=== PATIENT | male | born 1960 | race Native Hawaiian/Other Pacific Islander ===

== ENCOUNTER 2018-04-21 15:51 | Emergency (ER) | payer SELFPAY ==
[2018-04-21 17:26] VITALS: BP 138/88
--- NOTE | 2018-04-21 18:18 | Emergency Department Report ---
Blank Doc - Documentation Documentation: 57 y.o. male presents to ED with right 1st digit pain s/p accidental hitting it with hammer 3-4 days ago. cc of pain to right thumb EXAM: Tender to palp of right distal phalanx, swelling, partial nail avulsion. PLAN: xr fast track eval.
--- NOTE | 2018-04-21 19:28 | XRay Report ---
FINAL REPORT EXAM: XRAY FINGER RIGHT 1ST DIGIT HISTORY: right first digit phalanx TECHNIQUE: Three views the right thumb PRIORS: None. FINDINGS: No fracture is identified. The joint spaces are within normal limits. No focal bony lesion identified . No radiopaque foreign body seen. IMPRESSION: Negative no acute abnormality.
[2018-04-21] MEDS ORDERED: NORCO 5/325 PO ONE (21:31)
[2018-04-21] MEDS ORDERED: KEFLEX PO ONE (21:31)
--- NOTE | 2018-04-21 21:38 | Emergency Department Report ---
Upper Extremity - HPI Chief Complaint: Extremity Injury, Upper Stated Complaint: THUMB NAIL CAME OFF Time Seen by Provider: 04/21/18 18:13 Upper Extremity: Right Thumb Occurred When: 3 Days Mechanism: Hit with Object Severity: moderate Symptoms: Yes Pain with Movement, Yes Swelling, Yes Bruising/Ecchymosis, No Deformity, No Limited Range of Movement, No Numbness, No Weakness, No Laceration or Abrasion Other History: Patient is a 57-year-old male presenting status post crush injury to right thumb , 3 days ago states nail came off with pain swelling drainage pain is 7/10 was moderate swelling and purulent drainage no numbness no tingling range of motion is intact ED Review of Systems ROS: Stated complaint: THUMB NAIL CAME OFF Other details as noted in HPI Constitutional: denies: chills, fever Eyes: denies: eye pain, eye discharge, vision change ENT: denies: ear pain, throat pain Respiratory: denies: cough, shortness of breath, wheezing Cardiovascular: denies: chest pain, palpitations Endocrine: no symptoms reported Gastrointestinal: denies: abdominal pain, nausea, diarrhea Genitourinary: denies: urgency, dysuria Musculoskeletal: joint swelling (right thumb ), other (subugual hematoma) Skin: denies: rash, lesions Neurological: denies: headache, weakness, paresthesias Psychiatric: denies: anxiety, depression Hematological/Lymphatic: denies: easy bleeding, easy bruising ED Past Medical Hx - Past Medical History Previous Medical History?: No - Surgical History Past Surgical History?: No - Social History Smoking Status: Unknown if ever smoked - Medications Home Medications: Home Medications Medication Instructions Recorded Confirmed Last Taken Type Cephalexin [Keflex] 500 mg PO QID 10 Days #40 capsule 04/21/18 Unknown Rx Tramadol HCl [Ultram] 50 mg PO Q6H #12 tablet 04/21/18 Unknown Rx Upper Extremity Exam - Exam General: Vital signs noted. No distress. Alert and acting appropriately. Head and Torso: No HEENT Abnormality, No Neck Tenderness, No Chest/Lungs Abnormality, No Abdominal Tenderness, No Back Tenderness Shoulder Exam: Yes Normal Range of Motion in Shoulder, No Shoulder Tenderness, No Clavicle Tenderness, No Shoulder Deformity, No AC Joint Tenderness Arm Exam: No Arm/Humerus Tenderness, No Arm Deformity Elbow: No Elbow Tenderness, No Normal Range of Motion in Elbow, No Elbow Deformity Forearm: No Forearm Tenderness, No Forearm Deformity, No Pain with Pronation, No Pain with Supination Wrist: Yes Normal ROM in Wrist, No Wrist Tenderness, No Wrist Deformity, No Snuffbox Tenderness, No Pain with Axial Thumb Compression Hand: Yes Digit Tenderness, Yes Normal ROM in Digit(s), Yes Digit(s) Deformity (right thumb nail ), No Hand Tenderness, No Hand Deformity, No Tendon Dysfunction CMS Exam: Yes Broken Skin, Yes Normal Distal Pulses, Yes Normal Capillary Refill, Yes Normal Distal Sensation ED Course Vital Signs 04/21/18 04/21/18 17:24 20:06 Temperature 98.6 F 98.6 F Pulse Rate 78 78 Respiratory 16 Rate Blood Pressure 138/88 Blood Pressure 138/88 [Left] O2 Sat by Pulse 100 97 Oximetry - I & D Right Finger Type of Procedure: Simple Site: right thumb nail subugual hematoma Blade Size: 11 I & D Procedure: betadine prep, sterile dressing applied Progress: His right thumbnail subungual hematoma negative fracture on x-ray wound clean with Betadine solution and anesthesia with 1% lidocaine plain via digital block no remembrance 11 blade . Nailbed probed and swept with Q-tip irrigated with 20 mL sterile saline Vaseline gauze dressing applied no remaining nail used for anchor sterile dressings applied patient given wound care instructions including symptoms of infection and when to return to ED range of motion is intact there is no tendon muscle or joint damage. distal pulse intact ED Medical Decision Making - Radiology Data Radiology results: report reviewed, image reviewed FINAL REPORT EXAM: XRAY FINGER RIGHT 1ST DIGIT HISTORY: right first digit phalanx TECHNIQUE: Three views the right thumb PRIORS: None. FINDINGS: No fracture is identified. The joint spaces are within normal limits. No focal bony lesion identified. No radiopaque foreign body seen. IMPRESSION: Negative no acute abnormality. Transcribed By: FELIX Dictated By: VALE NOVOA MD Electronically Authenticated By: VALE NOVOA MD Signed Date/Time: 04/21/181927 DD/ 26 TD/TT: 04/21/181926 - Medical Decision Making subugual hematoma, neg xray , nailed removed intact , sterile dressing applied all bleeding controlled, no nerve tendon or muscle damage on osteomyelitis, pt tolerated procedure with minimal distress, pt will follow up with [facility] in 2 days for wound check will dc to home with rx for keflex, ultram pt will return to ed if symptoms worsen. Critical care attestation.: If time is entered above; I have spent that time in minutes in the direct care of this critically ill patient, excluding procedure time. ED Disposition Clinical Impression: Subungual hematoma Disposition: DC-01 TO HOME OR SELFCARE Is pt being admited?: No Does the pt Need Aspirin: No Condition: Stable Instructions: Subungual Hematoma (ED) Prescriptions: Cephalexin [Keflex] 500 mg PO QID 10 Days #40 capsule Tramadol HCl [Ultram] 50 mg PO Q6H #12 tablet Referrals: [facility] [Outside] - 3-5 Days Forms: Work/School Release Form(ED) Time of Disposition: 21:42
== END 2018-04-21 21:50 | disposition home or self-care (01) ==
LOC: ED 15:51
DX: S60.111A Contusion of right thumb with damage to nail, initial encounter (principal); W23.0XXA Caught, crushed, jammed, or pinched between moving objects, initial encounter; Y93.89 Activity, other specified; Y92.89 Other specified places as the place of occurrence of the external cause; Y99.8 Other external cause status

== ENCOUNTER 2018-04-27 17:03 | Emergency (ER) | payer SELFPAY ==
[2018-04-27 17:30] VITALS: BP 132/80
[2018-04-27] MEDS ORDERED: TYLENOL #3 PO ONE (17:39)
[2018-04-27] MEDS ORDERED: TRIPLE ANTIBIOTIC TP ONE (17:39)
--- NOTE | 2018-04-27 17:39 | Emergency Department Report ---
Blank Doc - Documentation Documentation: 57 y o male returns to ED for wound check thumb nail off redress lightly f/u with pcp
--- NOTE | 2018-04-27 18:15 | Emergency Department Report ---
ED Recheck HPI - General Chief Complaint: Laceration/Recheck/Suture Stated Complaint: RT HAND PAIN Time Seen by Provider: 04/27/18 17:26 Source: patient Mode of arrival: Ambulatory Limitations: No Limitations - History of Present Illness Initial Comments: Patient is a 57 year old [place] male who comes to the ER today for recheck of his wound. He states that he hit it with a hammer several days ago and was seen here in the ER. He says he was told to follow-up here. However, review the chart states that he was to follow up as primary care. MD Complaint: wound re-check Symptoms Since Prior Visit: no new symptoms - Related Data Previous Rx's Medication Instructions Recorded Last Taken Type Cephalexin [Keflex] 500 mg PO QID 10 Days #40 capsule 04/21/18 Unknown Rx Tramadol HCl [Ultram] 50 mg PO Q6H #12 tablet 04/21/18 Unknown Rx Allergies Allergy/AdvReac Type Severity Reaction Status Date / Time No Known Allergies Allergy Verified 04/21/18 18:13 ED Review of Systems ROS: Stated complaint: RT HAND PAIN Other details as noted in HPI Comment: All other systems reviewed and negative Constitutional: denies: see HPI ENT: denies: as per HPI, ear pain Respiratory: denies: cough Cardiovascular: denies: palpitations Endocrine: denies: intolerance to cold Gastrointestinal: denies: abdominal pain Genitourinary: denies: urgency Musculoskeletal: as per HPI. denies: back pain Skin: denies: rash Neurological: denies: headache Psychiatric: denies: as per HPI, depression Hematological/Lymphatic: denies: easy bleeding ED Past Medical Hx - Past Medical History Previous Medical History?: No - Surgical History Past Surgical History?: No - Family History Family history: no significant - Social History Smoking Status: Never Smoker Substance Use Type: None - Medications Home Medications: Home Medications Medication Instructions Recorded Confirmed Last Taken Type Cephalexin [Keflex] 500 mg PO QID 10 Days #40 capsule 04/21/18 Unknown Rx Tramadol HCl [Ultram] 50 mg PO Q6H #12 tablet 04/21/18 Unknown Rx ED Physical Exam - General Limitations: No Limitations General appearance: alert - Head Head exam: Present: atraumatic - Eye Eye exam: Present: normal appearance, PERRL Pupils: Present: normal accommodation - ENT ENT exam: Present: mucous membranes moist - Neck Neck exam: Present: normal inspection - Respiratory Respiratory exam: Present: normal lung sounds bilaterally - Cardiovascular Cardiovascular Exam: Present: regular rate - GI/Abdominal GI/Abdominal exam: Present: soft - Rectal Rectal exam: Present: deferred - Extremities Exam Extremities exam: Present: other (THUMB HEALING WELL. NO DRAINGE. NO FEVER) - Neurological Exam Neurological exam: Present: alert, oriented X3 - Psychiatric Psychiatric exam: Present: normal affect, normal mood - Skin Skin exam: Present: warm, dry ED Course Vital Signs 04/27/18 17:27 Temperature 98.3 F Pulse Rate 102 H Respiratory 18 Rate Blood Pressure 132/80 [Left] O2 Sat by Pulse 97 Oximetry ED Recheck MDM - Core Measures Measure Exclusions: not indicated - Differential Diagnosis Wound Recheck - Medical Decision Making HEALING WELL NO SYMPTOMS OF INFECTION NO FEVER Critical care attestation.: If time is entered above; I have spent that time in minutes in the direct care of this critically ill patient, excluding procedure time. ED Disposition Clinical Impression: Visit for wound check Disposition: DC- TO HOME OR SELFCARE Is pt being admited?: No Does the pt Need Aspirin: No Condition: Stable Instructions: Laceration (ED) Additional Instructions: follow up with pcp referral below motrin or tylenol for pain continue your keflex medicine change dressing twice per day take dressing off wash with soap and water apply neosporin (OVER THE COUNTER) and wrap loosely in guaze Referrals: [facility] [Outside] - 3-5 Days Time of Disposition: 18:17
== END 2018-04-27 18:54 | disposition home or self-care (01) ==
LOC: ED 17:03
DX: Z48.00 Encounter for change or removal of nonsurgical wound dressing (principal); Z53.21 Procedure and treatment not carried out due to patient leaving prior to being seen by health care provider
CPT/HCPCS: A6250

== ENCOUNTER 2018-07-17 11:36 | Emergency (ER) | payer OTHER ==
--- NOTE | 2018-07-17 13:32 | Emergency Department Report ---
ED General Adult HPI - General Chief complaint: Extremity Injury, Upper Stated complaint: R HAND PAIN Time Seen by Provider: 07/17/18 13:10 Source: patient Mode of arrival: Ambulatory Limitations: Language Barrier - History of Present Illness Initial comments: This is a 57-year-old male who was pitting here previously after sustaining a laceration to his right thumb that happened in April. Patient has been here several times and was evaluated. For his right thumb injury. Patient denies being here to follow-up continuously due to infection of the right thumb. Patient states that he took all his medication as prescribed to him couple months ago.Patient reports to the ED complaining of pain to the same right thumb. Patient states is his normal medication he was given she denies any reinjury or trauma to the finger. He presents today stating that he started having some pain to the right finger. No other complaints - Related Data Previous Rx's Medication Instructions Recorded Last Taken Type Cephalexin [Keflex] 500 mg PO QID 10 Days #40 capsule 04/21/18 Unknown Rx Tramadol HCl [Ultram] 50 mg PO Q6H #12 tablet 04/21/18 Unknown Rx Acetaminophen/Codeine [Tylenol 1 tab PO Q6H PRN #14 tab 04/29/18 Unknown Rx /Codeine # 3 tab] Ciprofloxacin HCl [Ciprofloxacin 500 mg PO Q12H 10 Days #20 tab 04/29/18 Unknown Rx TAB] Clindamycin [Clindamycin CAP] 300 mg PO Q8H 10 Days #30 cap 07/17/18 Unknown Rx Ibuprofen [Motrin 800 MG tab] 800 mg PO Q8HR PRN #30 tablet 07/17/18 Unknown Rx Allergies Allergy/AdvReac Type Severity Reaction Status Date / Time No Known Allergies Allergy Verified 04/21/18 18:13 ED Review of Systems ROS: Stated complaint: R HAND PAIN Other details as noted in HPI Comment: All other systems reviewed and negative ED Past Medical Hx - Past Medical History Previous Medical History?: No Additional medical history: Injured right thumb on 05/01/2018 - Social History Smoking Status: Never Smoker Substance Use Type: None - Medications Home Medications: Home Medications Medication Instructions Recorded Confirmed Last Taken Type Cephalexin [Keflex] 500 mg PO QID 10 Days #40 capsule 04/21/18 Unknown Rx Tramadol HCl [Ultram] 50 mg PO Q6H #12 tablet 04/21/18 Unknown Rx Acetaminophen/Codeine [Tylenol 1 tab PO Q6H PRN #14 tab 04/29/18 Unknown Rx /Codeine # 3 tab] Ciprofloxacin HCl [Ciprofloxacin 500 mg PO Q12H 10 Days #20 tab 04/29/18 Unknown Rx TAB] Clindamycin [Clindamycin CAP] 300 mg PO Q8H 10 Days #30 cap 07/17/18 Unknown Rx Ibuprofen [Motrin 800 MG tab] 800 mg PO Q8HR PRN #30 tablet 07/17/18 Unknown Rx ED Physical Exam - General Limitations: Language Barrier General appearance: alert, in no apparent distress - Head Head exam: Present: atraumatic, normocephalic - Eye Eye exam: Present: normal appearance - ENT ENT exam: Present: mucous membranes moist - Neck Neck exam: Present: normal inspection - Respiratory Respiratory exam: Present: normal lung sounds bilaterally. Absent: respiratory distress - Cardiovascular Cardiovascular Exam: Present: regular rate, normal rhythm. Absent: systolic murmur, diastolic murmur, rubs, gallop - GI/Abdominal GI/Abdominal exam: Present: soft, normal bowel sounds - Rectal Rectal exam: Present: deferred - Extremities Exam Extremities exam: Present: normal inspection, full ROM, tenderness (mild tenderness to palpation of the ride a thump. The nailbed is located well healing. No former erythema or swelling noted to the finger. No loss of sensation to the right thumb.) - Back Exam Back exam: Present: normal inspection - Neurological Exam Neurological exam: Present: alert, oriented X3 - Psychiatric Psychiatric exam: Present: normal affect, normal mood - Skin Skin exam: Present: warm, dry, intact, normal color. Absent: rash ED Course Vital Signs 07/17/18 12:02 Temperature 98.1 F Pulse Rate 82 Respiratory 18 Rate Blood Pressure 146/95 O2 Sat by Pulse 97 Oximetry ED Medical Decision Making - Medical Decision Making 57-year-old male presents with right thumb pain from injury about 2 months ago. Right thumb looks well-healing, nail bed is starting to grow back. Discussed the patient will follow-up with Dr. Quiroga as previously discussed. Discussed follow-up with the primary care physician as well. Discussed the patient that the right thumb can't take longer to heal due to the fact that the nailbed was affected. Vital signs are normal patient is in no acute distress. Patient understands instructions and will follow-up as discussed. Critical care attestation.: If time is entered above; I have spent that time in minutes in the direct care of this critically ill patient, excluding procedure time. ED Disposition Clinical Impression: Pain of right thumb Disposition: DC- TO HOME OR SELFCARE Is pt being admited?: No Does the pt Need Aspirin: No Condition: Stable Instructions: Thumb Fracture (ED) Additional Instructions: Make sure to follow up with the primary care physician as discussed. Take all your medications as you've been prescribed. If you have any worsening symptoms or develop new symptoms please return to ED immediately. Prescriptions: Clindamycin [Clindamycin CAP] 300 mg PO Q8H 10 Days #30 cap Ibuprofen [Motrin 800 MG tab] 800 mg PO Q8HR PRN #30 tablet PRN Reason: pain Referrals: PRIMARY CARE,MD [Primary Care Provider] - 3-5 Days Forms: Accompanied Note, Work/School Release Form(ED) Time of Disposition: 13:34
[2018-07-17 14:30] VITALS: BP 135/82
== END 2018-07-17 14:30 | disposition home or self-care (01) ==
LOC: ED 11:36
DX: M79.644 Pain in right finger(s) (principal)
CPT/HCPCS: 99282